=== PATIENT | male | born 1945 | race Caucasian/White ===

== ENCOUNTER → 2017-10-04 | Outpatient (CLI) | payer MEDICARE, OTHER ==
[~2017-10-04] MED LIST: ASPI-717 PO; ASPI81TA94 PO; ATOR40TA24 PO; CALC-965 PO; DOC100 PO; EZET1TAB61 PO; GLUC100026 PO; GLUC500C29 PO; IBU800 PO; IBUP200C71 PO; LORA-630 PO; METO50TA19 PO; METXL50 PO; MULT-820 PO; NIA100 PO; OMEG-11 PO; OMEP-218 PO; OXYC1TAB54 PO; RANI-318 PO; RANI-366 PO; ROSU20TA23 PO; TRAZ150T61 PO
[2017-10-04 10:57] LABS: PLATELET COUNT, AUTOMATED 204 K/uL (150-450)
[2017-10-04 11:39] LABS: LDL CHOLESTEROL 68 mg/dl
== END ==
LOC: LAB 10:45
PROVIDERS: ATTEND Internal Medicine
DX: Z12.5 Encounter for screening for malignant neoplasm of prostate (principal); G47.33 Obstructive sleep apnea (adult) (pediatric); I25.10 Atherosclerotic heart disease of native coronary artery without angina pectoris; I10 Essential (primary) hypertension; E78.5 Hyperlipidemia, unspecified
CPT/HCPCS: 36415; 81001; 84443; 85025; G0103; 82040; 82247; 82310; 82374; 82435; 82465; 82565; 82947; 83718; 84075; 84132; 84153; 84155; 84295; 84450; 84460; 84478; 84520

== ENCOUNTER → 2018-10-25 | Outpatient (CLI) | payer MEDICARE, OTHER ==
[~2018-10-25] MED LIST changes: +ATOR-1 PO; +IBUP-136 PO; -IBUP200C71 PO; +LISI5TAB25 PO
[2018-10-25 10:06] LABS: PLATELET COUNT, AUTOMATED 219 K/uL (150-450)
[2018-10-25 10:18] LABS: LDL CHOLESTEROL 74 mg/dl
== END ==
LOC: LAB 09:48
PROVIDERS: ATTEND Internal Medicine
DX: Z12.5 Encounter for screening for malignant neoplasm of prostate (principal); G47.33 Obstructive sleep apnea (adult) (pediatric); E78.5 Hyperlipidemia, unspecified; I10 Essential (primary) hypertension; I25.10 Atherosclerotic heart disease of native coronary artery without angina pectoris
CPT/HCPCS: 36415; 81001; 84443; 85025; G0103; 82040; 82247; 82310; 82374; 82435; 82465; 82565; 82947; 83718; 84075; 84132; 84153; 84155; 84295; 84450; 84460; 84478; 84520

== ENCOUNTER → 2018-10-31 | Outpatient (CLI) | payer MEDICARE, OTHER ==
[~2018-10-31] MED LIST changes: -RANI-366 PO; +RANI-54 PO
--- NOTE | 2018-11-03 07:19 | RADIOLOGY IMAGING REPORT ---
FACILITY: [facility] - [place] PATIENT NAME: Helio Gomez : 1945 MR: [id number] V: [id number] EXAM DATE: ORDERING PHYSICIAN: MICHELLE STACY TECHNOLOGIST: Location: [facility] [place] Patient: Helio Gomez : 1945 Visit/Account:[id number] Date of Sevice: 10/31/2018 US ANKLE BRACHIAL INDICES HISTORY: PVD COMPARISON: CTA with runoff from October 21, 2016. FINDINGS: Right WILLARD: 0.75 at rest Left WILLARD: 0.71 at rest. IMPRESSION: ABIs indicative of moderate peripheral arterial disease Report Dictated By: Garo Esteves MD at 11/03/2018 7:13 AM Report E-Signed By: Garo Esteves MD at 11/03/2018 7:15 AM WSN:[id number]
== END ==
LOC: US 00:08
PROVIDERS: ATTEND Internal Medicine
DX: I73.9 Peripheral vascular disease, unspecified (principal)
CPT/HCPCS: 93922

== ENCOUNTER → 2018-12-21 | Outpatient (CLI) | payer MEDICARE, OTHER ==
[~2018-12-21] MED LIST changes: +DULO30CA35 PO; +DULO60CA56 PO
--- NOTE | 2018-12-21 10:09 | EKG ---
FACILITY: [facility] - [place] PATIENT NAME: SAYRA FANG : [id number] MR: [id number] V: [id number] EXAM DATE: ORDERING PHYSICIAN: MICHELLE STACY TECHNOLOGIST: JAMIE Barillas Reason : PRE-OP Blood Pressure : / mmHG Vent. Rate : 053 BPM Atrial Rate : 053 BPM P-R Int : 170 ms QRS Dur : 082 ms QT Int : 436 ms P-R-T Axes : 047 028 067 degrees QTc Int : 409 ms Sinus bradycardia Otherwise normal ECG No previous ECGs available Referred By: Confirmed By:
== END ==
LOC: RESP 08:28
PROVIDERS: ATTEND Internal Medicine
DX: Z02.9 Encounter for administrative examinations, unspecified (principal)

== ENCOUNTER 2019-01-02 02:19 | Day surgery (SDC) | payer MEDICARE, OTHER ==
[~2019-01-02] VITALS: Ht 170.2 cm; Wt 80.3 kg
[2019-01-02] MEDS ORDERED: LIDOCAINE/SOD BICARB 8.4% SYR ID ONE (11:30)
[2019-01-02] MEDS ORDERED: NORMOSOL R SOLN(*) 1000 ML BAG 1,000 ML IV PRN (11:30)
[2019-01-02] MEDS ORDERED: MIDAZOLAM 2 MG/2 ML VIAL IVP PRN (11:30)
[2019-01-02] MEDS ORDERED: cefTRIAXone(*) 1 GM VIAL 1 GM in NS(*) 0.9% 100 ML MINI-BAG 100 ML IVPB ONE (11:30)
[2019-01-02] MEDS ORDERED: FAMOTIDINE 20 MG TAB PO ONE (14:45)
[2019-01-02] MEDS ORDERED: DEXAMETHASONE SOD 4 MG/ML VIAL ONE (14:59)
[2019-01-02] MEDS ORDERED: PROPOFOL EMUL(*) 10MG/ML 20 ML 20 ML ONE (15:00)
[2019-01-02] MEDS ORDERED: ONDANSETRON 4 MG/2 ML VIAL ONE ×2 (15:00→18:18)
[2019-01-02] MEDS ORDERED: LIDOCAINE MPF 1% 5 ML VIAL ONE (15:00)
[2019-01-02 15:14] VITALS: BP 126/81
[2019-01-02] MEDS ORDERED: fentaNYL CITR 100 MCG/2 ML AMP ONE ×2 (16:59→18:10)
[2019-01-02] MEDS ORDERED: ACET-1718 PO (19:20)
[2019-01-02] MEDS ORDERED: FAMO-67 PO (19:21)
[2019-01-02] MEDS ORDERED: PHEN200T32 PO (19:21)
[2019-01-02] MEDS ORDERED: IBUP-297 PO (19:22)
[2019-01-02] MEDS ORDERED: CIPR-214 PO (19:24)
[2019-01-02] MEDS ORDERED: KETOROLAC 30 MG/ML VIAL ONE (19:29)
[2019-01-02 20:00] VITALS: BP 107/84
[2019-01-02 20:03] VITALS: BP 110/71
--- NOTE | 2019-01-02 20:30 | NUR ---
1944 PATIENT WAS MOVED TO PHASE II. I WILL BE RESUMING CARE. SEE PACU NOTES 1999 BEGAN DOING ORTHOSTATICS WITH PATIENT. PATIENT DENIES ANY DIZZINESS OR LIGHTHEADEDNESS. WHILE HE WAS SITTING, HE HAD A SMALL AMOUNT OF BLOOD DRIPPING FROM END OF PENIS. PATIENT APPLIED GAUZE AND BLEEDING STOPPED SHORTLY AFTERWARDS. 2002 PATIENT BEGAN STANDING. HE WAS STABLE ON HIS FEET 2009 PATIENT BEGAN GETTING DRESSED 2015 PATIENTS IV WAS DC'D WITH CATH INTACT 2029 PATIENT WAS TAKEN VIA WHEELCHAIR AND WAS ACCOMPANIED BY CIPRIANO LAWRENCE RN AND HIS . LUNGS ARE CLEAR. BOWEL SOUNDS ARE HYPERACTIVE. HE DENIES ANY PAIN OR NAUSEA. PATIENT WAS ABLE TO VOID PRIOR TO DISCHARGE. HE STATES THERE WAS A SMALL AMOUNT OF BURNING DURING URINATION AND BLOOD. SEE DISCHARGE ASSESSMENT.
--- NOTE | 2019-01-03 10:49 | OPERATIVE REPORT 1 ---
EVENT DATE: January 02, 2019 SURGEON: Eric Thorne MD ANESTHESIOLOGIST: Pawel Jones MD ANESTHESIA: General. PREOPERATIVE DIAGNOSES * Difficulty with micturition, etiology ?. * Urgency and frequency of urination and nocturia. * Hesitancy with urination. * Possible urethral stricture. POSTOPERATIVE DIAGNOSIS * Difficulty with micturition, etiology ?. * Urgency and frequency of urination and nocturia. * Hesitancy with urination. * Possible urethral stricture. 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 The 21-Panendoscope admitted through the meatus into the urethra. [place] bulbs were used to calibrate the urethra and it calibrated to approximately 18 to 20 Gu[place]an. There was a stricture at approximately the mid to maybe slightly distal fossa navicularis. The stricture was dilated to 22-Guinean. The 21-Panendoscope would admit through urethra and into the bladder. The remainder of the urethra was normal. Prostate showed trilobular hyperplasia with obstruction, mostly by prominent median bar. Bladder showed 4+ trabeculation. Trigone and ureteral orifices were normal. No other demonstrable lesions. Bladder filled under gravity flow was measured to a total of 700 cc. On drainage of the bladder, there was no bloody drainage or glomerulations. The bladder was drained. Hydrocortisone cream was placed per urethra. Digital rectal examination revealed approximately a 60 gram prostate. Sulcus was benign feeling. Patient's PSA was 1.9 in September 2018. Patient is status postop urethra dilation, cystoscopy and prostate massage by Dr. Blackwell in 1990. Prostate ultrasound at that time showed calculus prostatitis. Patient complained of diminution of seminal fluid at that time. Patient returned to the recovery room in satisfactory condition. Patient will be ready for discharge home when alert and functional. To force fluids 2L per day. Activities are as tolerated. He was instructed on stripping of his urethra to help minimize his chronic dribbling with urination. Flomax therapy will be discussed with the patient as it was preoperatively in followup. [facility]
== END 2019-01-02 19:45 | disposition home or self-care (01) ==
LOC: OR 02:19
DX: N40.1 Benign prostatic hyperplasia with lower urinary tract symptoms (principal)
CPT/HCPCS: 52281; 81001; 87088; A9270; J0696; J1100; J1885; J2001; J2405; J2704; J3010

== ENCOUNTER → 2019-01-13 | Outpatient (CLI) | payer MEDICARE, OTHER ==
[~2019-01-13] MED LIST changes: +ACET-1718 PO; +CIPR-214 PO; +FAMO-67 PO; +IBUP-297 PO; +PHEN200T32 PO
--- NOTE | 2019-01-13 12:26 | RADIOLOGY IMAGING REPORT ---
FACILITY: [facility] - [place] PATIENT NAME: Helio Gomez : 1945 MR: [id number] V: [id number] EXAM DATE: ORDERING PHYSICIAN: PRESTON JUAN TECHNOLOGIST: Location: [facility] Patient: Helio Gomez : 1945 Visit/Account:[id number] Date of Sevice: 01/13/2019 Carotid ultrasound Indication: Right carotid bruit and peripheral artery disease. Comparison:None available Findings: On the right : Peak systolic velocity of the right common carotid artery is 107 cm/s Peak systolic velocity of the right internal carotid artery is 61 cm/s There appears to be antegrade and retrograde flow within the right vertebral artery. The right ICA/CCA ratio is 0.6 On the left: Peak systolic velocity of the left common carotid artery is 169 cm/s Peak systolic velocity of the left internal carotid artery is 82 cm/s There is normal antegrade flow of the left vertebral artery. The left ICA/CCA ratio is 0.5 Moderate atherosclerosis within the bilateral carotid bulbs extending into the internal and external carotid arteries without definitive visualized high-grade stenosis. IMPRESSION: 1. No hemodynamically significant stenosis of the bilateral common carotid arteries and bilateral int ernal carotid arteries based on velocity criteria. 2. Moderate visualized atherosclerosis within the bilateral carotid bulbs extending into the internal carotid and extra carotid arteries without definitive high-grade visualized stenosis. 3. Apparent antegrade and retrograde flow within the right vertebral artery. Cannot exclude component of subclavian steal syndrome. Carotid % stenosis: Velocity criteria are extrapolated from diameter data as defined by the Society o f Radiologists in Ultrasound Consensus Conference, Radiology 2003; 229; 340-346 Report Dictated By: Aniket Catalan MD at 01/13/2019 12:12 PM Report E-Signed By: Aniket Catalan MD at 01/13/2019 12:17 PM WSN:[id number]
--- NOTE | 2019-01-13 16:52 | RADIOLOGY IMAGING REPORT ---
FACILITY: [facility] PATIENT NAME: Helio Gomez : 1945 MR: [id number] V: [id number] EXAM DATE: ORDERING PHYSICIAN: PRESTON JUAN TECHNOLOGIST: Location: [facility] - [place] Patient: Helio Gomez : 1945 Visit/Account:[id number] Date of Sevice: 01/13/2019 ARTERIAL BILAT LOWER EXT EXAMINATION: Noninvasive vascular imaging of the right and left lower extremity. Technique: There has been calculation of the ankle-brachial indices using brachial artery systolic bl ood pressure and ankle systolic blood pressure. There has also been ultrasound grayscale imaging wit h Doppler waveform analysis and color flow evaluation of the arteries of the right and left leg HISTORY: Peripheral vascular disease. COMPARISON: Peripheral vascular ultrasound of September 29, 2016. Findings: Right side: Right WILLARD: Not obtained. Grayscale imaging findings: Grayscale imaging shows mural atherosclerotic plaque in the common femora l and SFA to its midportion. In the midportion of the right SFA there is calcified echogenic plaque that produces shadow and does significantly encroach upon the lumen. [employer] peak systolic velocity: 124 cm/sec. The waveform is biphasic.. Proximal SFA peak systolic velocity: 47 cm/sec. The waveform is biphasic. Mid SFA peak systolic velocity: 397 cm/sec. The waveform is monophasic and there is significant spec tral broadening suggestive of turbulence. The findings suggest a mid SFA high-grade stenosis Distal SFA peak systolic velocity: 48 cm/sec. The waveform is monophasic/biphasic. Popliteal artery peak systolic velocity: 34 cm/sec. The waveform is monophasic/biphasic. Profunda artery peak systolic velocity: 81 cm/sec. The waveform is biphasic Posterior tibial artery peak systolic velocity: 16 cm/sec. Waveform is monophasic and there is low r esistance flow Anterior tibial artery peak systolic velocity: 34 cm/sec. The waveform is monophasic and there is lo w resistance flow. Peroneal artery peak systolic velocity: Not imaged. Dorsalis pedis artery: Peak systolic flow velocity 30 cm/s. The waveform is monophasic. There is no low resistance flow. Left side: Left WILLARD: Not obtained. Grayscale imaging findings: Atherosclerotic plaque is noted in the SFA and common femoral artery. Mu ral plaque in the mid left SFA does encroach upon the lumen. [employer] peak systolic velocity: 92 cm/second. The waveform is biphasic Proximal SFA peak systolic velocity: 82 cm/sec. The waveform is biphasic. Mid SFA peak systolic flow velocity: 252 cm/s. There is spectral broadening, but the waveform is sti ll biphasic. Distal SFA peak systolic velocity: 58 cm/sec. Waveform is biphasic. Popliteal artery peak systolic velocity: 65 cm/sec. The waveform is biphasic Profunda artery peak systolic velocity: 67 cm/sec. The waveform is biphasic. Posterior tibial artery peak systolic velocity: 53 cm/sec. The waveform is biphasic. Anterior tibial artery peak systolic velocity: 36 cm/sec. Form is biphasic Peroneal artery peak systolic velocity: 64 cm/sec. Waveform is biphasic IMPRESSION: 1. In the right lower extremity there is a new high-grade stenosis in the mid right SFA that show si gnificant calcification on grayscale imaging. Peak systolic flow velocity is 397 cm/s and there is s pectral broadening suggesting turbulence. This calcified lesion could be treated with lithotripsy ba lloon angioplasty. Distally in the right leg the velocities are dampened due to this more proximal s tenosis, but infrapopliteal and infrapopliteal artery disease cannot be excluded. 2. In the left side there is a hemodynamically significant stenosis in the mid left SFA that is part ially calcified. The peak systolic flow velocity is 252 cm/s and there is turbulence. A more distal stenosis cannot be excluded but there is biphasic flow in the popliteal and infrainguinal vessels. Results were called to PRESTON JUAN M.D. At 01/13/2019 4:35 PM. Report Dictated By: Brigido Krishna MD at 01/14/20 9 4:13 PM Report E-Signed By: Brigido Krishna MD at 01/13/2019 4:43 PM WSN:[id number]
== END ==
LOC: US 04:02
PROVIDERS: ATTEND Internal Medicine Cardiovascular Disease
DX: I65.23 Occlusion and stenosis of bilateral carotid arteries (principal); I70.201 Unspecified atherosclerosis of native arteries of extremities, right leg
CPT/HCPCS: 93880; 93925